=== PATIENT | female | born 1995 | race Caucasian/White ===

== ENCOUNTER 2020-07-07 20:58 | Emergency (ER) | payer OTHER ==
[2020-07-07 21:23] VITALS: O2SAT 100
--- NOTE | 2020-07-07 22:04 | ERPHSYRPT ---
- History of Present Illness Time Seen by Provider: 07/07/20 21:20 Source: patient Exam Limitations: no limitations Patient Subjective Stated Complaint: pt states "I'm unsure how I hurt my arm but it doesn't look right." Triage Nursing Assessment: pt ambulated into the er; pt is axo x4; c/o rt wrist injury; states 7/10 pain to rt wrist; pt is unable to states cause of injury; rt wrist is swollen, tenderness with palpation, limited ROM; pt has strong radial pulses; good cap refill to rt hand; pt states she is unable to bend rt thumb; vitals wnl Physician History: Patient is a 24-year-old female presents with swelling and tenderness and pain along the radial aspect of the distal right forearm wrist and hand. She denies any known trauma and is uncertain of anything she might of done. She does report frequent falls. Occurred: other (Unknown) Method of Injury: unknown Quality: constant Severity of Pain-Max: mild Severity of Pain-Current: mild Modifying Factors: Improves With: nothing Associated Symptoms: none Allergies/Adverse Reactions: No Known Drug Allergies Allergy (Unverified 07/07/20 21:11) Home Medications: No Reportable Medications [No Reported Medications] 07/07/20 [History] Hx Tetanus, Diphtheria Vaccination/Date Given: No Hx Influenza Vaccination/Date Given: No Hx Pneumococcal Vaccination/Date Given: No Travel Risk - International Travel Have you traveled outside of the country in past 3 weeks: No - Coronavirus Screening Are you exhibiting any of the following symptoms?: No Close contact with a COVID-19 positive Pt in past 14-21 Days: No - Vaccine Status Have you recieved a Covid-19 vaccination: No - Review of Systems Constitutional: No Fever, No Chills Eyes: No Symptoms Ears, Nose, & Throat: No Symptoms Respiratory: No Cough, No Dyspnea Cardiac: No Chest Pain, No Edema, No Syncope Abdominal/Gastrointestinal: No Abdominal Pain, No Nausea, No Vomiting, No Diarrhea Genitourinary Symptoms: No Dysuria Musculoskeletal: Deformity, Joint Swelling, No Back Pain, No Neck Pain Skin: No Rash Neurological: No Dizziness, No Focal Weakness, No Sensory Changes Psychological: No Symptoms Endocrine: No Symptoms All Other Systems: Reviewed and Negative - Past Medical History Pertinent Past Medical History: No - Past Surgical History Past Surgical History: Yes Other Surgical History: tube in ears - Social History Smoking Status: Current every day smoker Exposure to second hand smoke: Yes Drug Use: none Patient Lives Alone: No - Female History Hx Now: No - Nursing Vital Signs Nursing Vital Signs: Initial Vital Signs Temperature 97.8 F 07/07/20 21:12 Pulse Rate 80 07/07/20 21:12 Respiratory Rate 16 07/07/20 21:12 Blood Pressure 127/81 07/07/20 21:12 O2 Sat by Pulse Oximetry 100 07/07/20 21:12 Pain Scale Pain Intensity 7 - Physical Exam General Appearance: mild distress, alert Eyes, Ears, Nose, Throat Exam: normal ENT inspection Neck Exam: non-tender, supple Cardiovascular/Respiratory Exam: chest non-tender, no respiratory distress Abdominal Exam: No guarding Back Exam: normal inspection, No vertebral tenderness Elbow/Forearm Exam: deformity, swelling (Bowling questionable deformity and tenderness along the radial aspect of the distal right forearm and wrist.) Wrist Exam: soft tissue tenderness, swelling Hand Exam: normal inspection Neuro/Tendon Exam: normal sensation, normal motor functions Mental Status Exam: alert, oriented x 3, cooperative Skin Exam: normal color, warm, dry SpO2 Interpretation: normal SpO2: 100 O2 Delivery: Room Air - Course Nursing assessment & vital signs reviewed: Yes - Radiology Exams Forearm X-ray Interpretation: Interpreted by me, Negative Hand X-ray Interpretation: Interpreted by me, Negative Ordered Tests: Active Orders 24 hr Category Date Time Status FOREARM Stat Exams 07/07/20 21:17 Taken HAND (MINIMUM 3 VIEWS) Stat Exams 07/07/20 21:17 Taken - Progress Progress: unchanged - Departure Departure Disposition: Home Clinical Impression: Contusion of right forearm Condition: Stable Critical Care Time: No Referrals: HEATHER ANN MD [Primary Care Provider] - Instructions: Contusion (DC)
[2020-07-07 22:08] VITALS: BP 111/76; PULSE 61
--- NOTE | 2020-07-08 08:11 | XRAY ---
Indication: Pain following injury 3 days ago. Comparison: None 3 view right hand obtained. No bony, articular, or soft tissue abnormalities.
--- NOTE | 2020-07-08 08:11 | XRAY ---
Indication: Pain following injury 3 days ago. Comparison: None 2 view right forearm obtained. No bony, articular, or soft tissue abnormalities.
== END 2020-07-07 22:25 | disposition home or self-care (01) ==
LOC: ED 20:58
DX: S50.11XA Contusion of right forearm, initial encounter (principal); M25.531 Pain in right wrist
CPT/HCPCS: 73090; 73130; 99284; A4570